=== PATIENT | male | born 1975 | race Two or more races ===

== ENCOUNTER 2022-07-05 17:18 | Inpatient (IN) | payer MEDICAID ==
[~2022-07-05] VITALS: Ht 172.7 cm; Wt 70.5 kg
[2022-07-05 19:07] LABS: BASOPHILS % (AUTO) 0.3 % (0-1); EOSINOPHILS % (AUTO) 0.1 % (0-6); HEMATOCRIT 40.8 % (42.0-52.0); HEMOGLOBIN 13.9 g/dl (14.0-17.9); LYMPHOCYTES # (AUTO) 2.3 X10'3 (1.1-4.8); LYMPHOCYTES % (AUTO) 18.5 % (21-51); MEAN CORPUSCULAR HEMOGLOBIN 29.3 PG (27.0-31.0); MEAN CORPUSCULAR HGB CONC 34.2 g/dL (33.0-36.5); MEAN CORPUSCULAR VOLUME 85.7 FL (78-98); MEAN PLATELET VOLUME 7.4 FL (7.4-10.4); MONOCYTES # (AUTO) 1.5 X10'3 (0-0.9); NEUTROPHILS # (AUTO) 8.8 X10'3 (1.8-7.7); NEUTROPHILS % (AUTO) 69.1 % (42-75); PLATELET COUNT 248 X10'3 (140-440); RED BLOOD COUNT 4.76 X10'6 (4.70-6.10); RED CELL DISTRIBUTION WIDTH 14.3 % (11.5-14.5); WHITE BLOOD COUNT 12.7 X10'3 (4.5-11.0)
[2022-07-05 19:19] LABS: ALANINE AMINOTRANSFERASE 476 U/L (12-78); ALBUMIN 3.7 G/DL (3.4-5.0); ALBUMIN/GLOBULIN RATIO 0.8 (1.1-1.5); ALKALINE PHOSPHATASE 106 IU/L (46-116); ANION GAP 12 (8-16); ASPARTATE AMINO TRANSFERASE 828 U/L (10-37); BILIRUBIN,TOTAL 0.9 MG/DL (0.1-1.0); BLOOD UREA NITROGEN 21 MG/DL (7-18); BUN/CREATININE RATIO 23.6 (5.4-32.0); CALCIUM 8.7 MG/DL (8.5-10.1); CHLORIDE 104 MMOL/L (99-107); CREATININE 0.89 MG/DL (0.60-1.10); GLUCOSE 101 MG/DL (70-104); LIPASE 66 U/L (73-393); POTASSIUM 3.4 MMOL/L (3.5-5.1); SODIUM 141 MMOL/L (135-145); TOTAL CARBON DIOXIDE 25.3 MMOL/L (24-32); TOTAL PROTEIN 8.3 G/DL (6.4-8.2); eGFR > 90 ML/MIN
--- NOTE | 2022-07-05 22:25 | NUR ---
PT STATES UNABLE TO URINATE SINCE YESTERDAY. BLADDER SCAN SHOWS 337 ML IN BLADDER.
--- NOTE | 2022-07-05 23:22 | NUR ---
PT WONDERING AROUND THE HALLWAYS AND REPEATEDLY TOLD TO STAY IN HALLWAY BED. PT MOVED TO ROOM 12 AND INSTRUCTED TO NOT LEAVE THE ROOM.
[2022-07-05 23:39] LABS: ETHANOL < 0.010 GM/DL (0.0-0.010)
[2022-07-06] MEDS ORDERED: thiamine 100mg/ml 2ml inj. IV ONE
--- NOTE | 2022-07-06 01:12 | NUR ---
PT WALKED OUT OF ER WITHOUT NOTIFYING ANYONE WITH PIV INTACT. [employer] NOTIFIED TO LOCATE PT IN ORDER TO REMOVE PIV.
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
[2022-07-06] MEDS ORDERED: diphenhydrAMINE 25mg capsule PO PRN (02:30)
[2022-07-06] MEDS ORDERED: bisacodyl 10mg suppository rectal RC PRN (02:30)
[2022-07-06] MEDS ORDERED: magnesium hydroxide 30ml (MOM) UD suspension PO PRN (02:30)
[2022-07-06] MEDS ORDERED: acetaminophen 650mg rectal suppository RC PRN (02:30)
[2022-07-06] MEDS ORDERED: magnesium Cl slow-release 64mg tablet PO PRN (02:30)
[2022-07-06] MEDS ORDERED: mag hydrox/Alum hydrox/simeth 30ml oral suspension PO PRN (02:30)
[2022-07-06] MEDS ORDERED: magnesium 4gm in 100ml NS 100 ML IV PRN (02:30)
[2022-07-06] MEDS ORDERED: diphenhydrAMINE 50 mg/ml inj IV PRN (02:30)
[2022-07-06] MEDS ORDERED: ondansetron 4mg rapidly disintigrating tab PO PRN (02:30)
[2022-07-06] MEDS ORDERED: acetaminophen 325mg tablet PO PRN ×2 (02:30)
[2022-07-06] MEDS ORDERED: potassium Cl 40MEQ/1/2NS 520ml 520 ML IV PRN (02:30)
[2022-07-06] MEDS ORDERED: ondansetron/PF 4mg/2ml inj IV PRN (02:30)
[2022-07-06] MEDS ORDERED: morphine 2 MG/ML inj. syringe IV PRN (02:30)
[2022-07-06] MEDS ORDERED: HYDROcodone/acetaminophen 5mg/325mg tablet PO PRN (02:30)
[2022-07-06] MEDS ORDERED: potassium Cl 20 mEq SR tablet PO PRN ×2 (02:30)
[2022-07-06] MEDS ORDERED: dextrose 50%-water 50ml dispensing syringe IV PRN (02:35)
[2022-07-06] MEDS ORDERED: haloperidol lactate 5mg/ml inj IM PRN (02:35)
[2022-07-06] MEDS ORDERED: LIDOcaine 2% 10ml TOPICAL JELLY (Urojet) TP ONE (02:35)
[2022-07-06] MEDS ORDERED: haloperidol 5mg tablet PO PRN (02:35)
[2022-07-06] MEDS ORDERED: ringers solution, lacted 1,000 ML IV ONE (02:35)
[2022-07-06] MEDS ORDERED: LORazepam 2 mg/ml vial IV PRN (02:35)
--- NOTE | 2022-07-06 03:49 | NUR ---
Patient in room ED 14. I have received report from Halima and had the opportunity to ask questions and assume patient care. patient will be arriving via gurney to rrom [id number]
[2022-07-06 04:05] VITALS: BP 136/92
[2022-07-06 04:14] LABS: URINE AMPHETAMINE SCREEN POSITIVE (Neg); URINE BARBITUATE SCREEN NEGATIVE (Neg); URINE BENZODIAZEPINES SCREEN NEGATIVE (Neg); URINE CANNABINOID SCREEN NEGATIVE (Neg); URINE COCAINE SCREEN NEGATIVE (Neg); URINE METHADONE SCREEN NEGATIVE (Neg); URINE OPIATE SCREEN NEGATIVE (Neg); URINE PHENCYCLIDINE SCREEN NEGATIVE (Neg)
[2022-07-06 04:22] LABS: CLARITY,URINE CLEAR (Clear); COLOR,URINE YELLOW (Yellow); GLUCOSE, URINE NEGATIVE (Neg); KETONES,URINE 15 mg/dl (Neg); LEUKOCYTE ESTERASE ,URINE NEGATIVE (Neg); NITRITES, URINE NEGATIVE (Neg); OCCULT BLOOD,URINE MODERATE (Neg); PROTEIN,URINE TRACE mg/dl (Neg); UROBILINOGEN,URINE 0.2 E.U/dL (0.2-1.0)
[2022-07-06 04:28] LABS: UA COLLECTION TYPE VOIDED
[2022-07-06 04:29] LABS: FINE GRANULAR CAST 0-3 /LPF (NEGATIVE); MUCUS STRANDS MODERATE /LPF (Neg); SQUAMOUS EPITHELIAL CELL,UR FEW /LPF (FEW)
[2022-07-06 04:30] LABS: HYALINE CASTS 0-3 /LPF (NEGATIVE)
[2022-07-06 04:32] LABS: BACTERIA,URINE FEW /HPF (Neg); CAL OXALATE CRYSTALS 1+ /HPF (NEGATIVE); WBC,URINE 0-4 /HPF (0-4)
[2022-07-06] MEDS: potassium cl 20mEq in 1/2 NS 1,000 ML IV SCH ×2 (04:59→12:30)
--- NOTE | 2022-07-06 06:28 | NUR ---
Problems reprioritized. Patient report given, questions answered & plan of care reviewed with Sally.
[2022-07-06 07:24] LABS: APTT 27 SECONDS (22-32)
[2022-07-06] MEDS ORDERED: pantoprazole 40mg Tablet.DR PO SCH (07:30)
[2022-07-06] MEDS ORDERED: docusate sod 100mg capsule PO SCH (08:00)
[2022-07-06] MEDS ORDERED: heparin, porcine 5000 units/ml vial SQ SCH (08:00)
[2022-07-06] MEDS ORDERED: K and/or MAG REPLACEMENT MC SCH (08:00)
[2022-07-06] MEDS ORDERED: folic acid 1mg/0.2ml inj IV SCH (08:00)
[2022-07-06 08:02] LABS: PHOSPHORUS 3.2 MG/DL (2.3-4.5); POTASSIUM 3.4 MMOL/L (3.5-5.1)
[2022-07-06] MEDS: thiamine 100mg/ml 2ml inj. IV SCH ×2 (09:01→13:00)
--- NOTE | 2022-07-06 09:13 | NUR ---
Malnutrition consult: Pt admitted w/ alcohol abuse/withdrawal cirrhosis per EMR. Pt does not report any specific amount of wt loss, does not appear w/ visible muscle fat wasting. On Clear liquid diet pending PO intake. No edema noted. Pt does not meet minimum criteria for malnutrition at this time. A1c 5.3. Will continue to monitor. Addendum: 07/06/22 at [address] Amended: Links added.
--- NOTE | 2022-07-06 10:02 | NUR ---
Received order for consult. Met with patient in regards to substance use and to see if patient was interested in resources for treatment options. Patient declined resources.
[2022-07-06] MEDS ORDERED: temazepam 15mg capsule PO PRN (21:00)
[2022-07-08] MEDS ORDERED: LORazepam 1 MG tablet PO PRN (02:35)
[2022-07-08] MEDS ORDERED: LORazepam 2 mg/ml vial IV PRN (02:35)
[2022-07-10] MEDS ORDERED: LORazepam 2 mg/ml vial IV PRN (02:35)
[2022-07-10] MEDS ORDERED: LORazepam 1 MG tablet PO PRN (02:35)
[2022-07-10] MEDS ORDERED: thiamine 100mg tablet PO SCH (08:00)
[2022-07-10] MEDS ORDERED: folic acid 1mg tablet PO SCH (08:00)
== END 2022-07-06 14:42 | disposition home or self-care (01) | DRG 861 ==
LOC: ER 17:20 → ED HOLD 07-06 02:31 → SUR 3N 07-06 04:00
PROVIDERS: ADMIT Family Medicine; ATTEND Internal Medicine
DX: R41.0 Disorientation, unspecified (principal); K70.30 Alcoholic cirrhosis of liver without ascites; B18.2 Chronic viral hepatitis C; E87.6 Hypokalemia; F10.139 Alcohol abuse with withdrawal, unspecified; R74.8 Abnormal levels of other serum enzymes; M54.9 Dorsalgia, unspecified; F31.9 Bipolar disorder, unspecified; F43.10 Post-traumatic stress disorder, unspecified; Z72.0 Tobacco use; Z88.6 Allergy status to analgesic agent; Z71.41 Alcohol abuse counseling and surveillance of alcoholic; Z71.6 Tobacco abuse counseling
CPT/HCPCS: 36415; 70450; 74176; 80053; 80305; 80320; 81001; 82140; 83036; 83690; 83735; 83880; 84100; 84132; 84443; 85025; 85610; 85730; 87081; 99285; G0378; J1644; J2060; J3411; J3480; J3490; J7120

== ENCOUNTER 2022-08-17 17:07 | Emergency (ER) | payer MEDICAID | END 2022-08-17 19:00 | disposition left against medical advice (07) | LOC: ER 17:08 | DX: Z00.00 Encounter for general adult medical examination without abnormal findings (principal); Z53.21 Procedure and treatment not carried out due to patient leaving prior to being seen by health care provider ==

== ENCOUNTER 2022-08-17 21:08 | Emergency (ER) | payer MEDICAID ==
[~2022-08-17] VITALS: Ht 170.2 cm; Wt 60.0 kg
[2022-08-17 21:24] VITALS: BP 156/96
== END 2022-08-17 23:34 | disposition home or self-care (01) ==
LOC: ER 21:08
DX: Z00.00 Encounter for general adult medical examination without abnormal findings (principal); F15.20 Other stimulant dependence, uncomplicated; Z56.0 Unemployment, unspecified; Z88.6 Allergy status to analgesic agent
CPT/HCPCS: 99281

== ENCOUNTER 2022-10-24 18:19 | Emergency (ER) | payer MEDICAID | END 2022-10-24 20:11 | disposition left against medical advice (07) | LOC: ER 18:20 | DX: R10.9 Unspecified abdominal pain (principal); Z53.21 Procedure and treatment not carried out due to patient leaving prior to being seen by health care provider ==

== ENCOUNTER 2023-01-13 01:14 | Emergency (ER) | payer MEDICAID ==
[~2023-01-13] VITALS: Ht 172.7 cm; Wt 75.0 kg
[2023-01-13 01:19] VITALS: BP 134/95
--- NOTE | 2023-01-13 02:33 | NUR ---
pt is asking for food. Informed him not at this time.
[2023-01-13 02:46] LABS: ALANINE AMINOTRANSFERASE 232 U/L (12-78); ALBUMIN 3.9 G/DL (3.4-5.0); ALKALINE PHOSPHATASE 140 IU/L (46-116); ANION GAP 13 (8-16); ASPARTATE AMINO TRANSFERASE 133 U/L (10-37); BILIRUBIN,TOTAL 0.6 MG/DL (0.1-1.0); BLOOD UREA NITROGEN 25 MG/DL (7-18); BUN/CREATININE RATIO 36.8 (10.0-20.0); CALCIUM 8.8 MG/DL (8.5-10.1); CHLORIDE 102 MMOL/L (99-107); CREATININE 0.68 MG/DL (0.60-1.10); GLUCOSE 111 MG/DL (70-104); POTASSIUM 3.7 MMOL/L (3.5-5.1); SODIUM 140 MMOL/L (135-145); TOTAL PROTEIN 7.9 G/DL (6.4-8.2); eGFR > 90 ML/MIN
[2023-01-13 02:48] LABS: BASOPHILS % (AUTO) 0.5 % (0-1); EOSINOPHILS # (AUTO) 0.4 X10'3 (0-0.9); EOSINOPHILS % (AUTO) 4.8 % (0-6); HEMOGLOBIN 13.5 g/dl (14.0-17.9); LYMPHOCYTES # (AUTO) 1.7 X10'3 (1.1-4.8); LYMPHOCYTES % (AUTO) 20.9 % (21-51); MEAN CORPUSCULAR HEMOGLOBIN 29.1 PG (27.0-31.0); MEAN CORPUSCULAR HGB CONC 33.7 g/dL (33.0-36.5); MEAN CORPUSCULAR VOLUME 86.3 FL (78-98); MEAN PLATELET VOLUME 6.7 FL (7.4-10.4); MONOCYTES # (AUTO) 0.8 X10'3 (0-0.9); MONOCYTES % (AUTO) 9.6 % (2-12); NEUTROPHILS # (AUTO) 5.2 X10'3 (1.8-7.7); NEUTROPHILS % (AUTO) 64.2 % (42-75); PLATELET COUNT 259 X10'3 (140-440); RED BLOOD COUNT 4.63 X10'6 (4.70-6.10); RED CELL DISTRIBUTION WIDTH 14.3 % (11.5-14.5); WHITE BLOOD COUNT 8.1 X10'3 (4.5-11.0)
[2023-01-13 02:51] LABS: LIPASE 131 U/L (73-393)
[2023-01-13 02:54] LABS: ETHANOL < 0.010 GM/DL (0.0-0.010)
[2023-01-13] MEDS ORDERED: QUET200T PO (23:17)
[2023-01-13] MEDS ORDERED: SERT25TA PO (23:17)
== END 2023-01-13 02:36 | disposition left against medical advice (07) ==
LOC: ER 01:15
DX: R10.9 Unspecified abdominal pain (principal); M54.2 Cervicalgia; R74.8 Abnormal levels of other serum enzymes; F15.10 Other stimulant abuse, uncomplicated; Z88.6 Allergy status to analgesic agent; Z56.0 Unemployment, unspecified
CPT/HCPCS: 36415; 71045; 80053; 80320; 83690; 84145; 84484; 85025; 99284

== ENCOUNTER 2023-01-13 22:40 | Emergency (ER) | payer MEDICAID ==
[~2023-01-13] VITALS: Ht 172.7 cm; Wt 79.5 kg
[2023-01-13] MEDS ORDERED: OLANZapine 5mg rapidly disint. tablet PO ONE (23:00)
--- NOTE | 2023-01-13 23:03 | NUR ---
PT HAVING TROUBLE FORMING FULL SENTENCES, SHOWING FLIGHT OF IDEAS AND TROUBLE FINDING WORDS. PT MISSING TEETH, HARD TO UNDERSTAND SPEECH. PT STATES LIVES WITH IN [place] AND [place]es SEES DOC IN [place] BUT HAS BEEN UNABLE TO GET BACK TO [place]. PT STATES HAS BEEN OFF MEDICATION FOR UNKNOWN NUMBER OF MONTHS. DR KRAMER AT BEDSIDE. PT STATES IS DISABLED AND UNABLE TO PICK HIM UP TODAY. PT REQUESTING TAXI HOME TO [place]. CHARGE NURSE BOUBACAR NOTIFIED.
[2023-01-13] MEDS ORDERED: quetiapine 100mg tablet PO SCH (23:14)
[2023-01-13] MEDS ORDERED: SERT25TA PO (23:17)
[2023-01-13] MEDS ORDERED: QUET200T PO (23:17)
[2023-01-13 23:35] VITALS: BP 120/82
== END 2023-01-13 23:38 | disposition home or self-care (01) ==
LOC: ER 22:41
DX: Z04.6 Encounter for general psychiatric examination, requested by authority (principal); F15.20 Other stimulant dependence, uncomplicated; Z88.6 Allergy status to analgesic agent; Z56.0 Unemployment, unspecified
CPT/HCPCS: 99284

== ENCOUNTER 2023-01-24 22:01 | Emergency (ER) | payer MEDICAID ==
[~2023-01-24] VITALS: Ht 172.7 cm; Wt 68.2 kg
[~2023-01-24 22:01] MED LIST: QUET200T PO; SERT25TA PO
[2023-01-24] MEDS ORDERED: quetiapine 100mg tablet PO STA (22:52)
[2023-01-24] MEDS ORDERED: OLANZapine 5mg rapidly disint. tablet PO ONE (22:55)
[2023-01-24] MEDS ORDERED: hydrOXYzine 25 MG tablet PO ONE (22:55)
[2023-01-24 23:16] LABS: BASOPHILS # (AUTO) 0.1 X10'3 (0-0.2); BASOPHILS % (AUTO) 0.8 % (0-1); EOSINOPHILS # (AUTO) 0.1 X10'3 (0-0.9); EOSINOPHILS % (AUTO) 0.8 % (0-6); HEMATOCRIT 39.2 % (42.0-52.0); HEMOGLOBIN 13.3 g/dl (14.0-17.9); LYMPHOCYTES # (AUTO) 2.6 X10'3 (1.1-4.8); LYMPHOCYTES % (AUTO) 23.7 % (21-51); MEAN CORPUSCULAR HGB CONC 33.9 g/dL (33.0-36.5); MEAN CORPUSCULAR VOLUME 85.6 FL (78-98); MEAN PLATELET VOLUME 6.8 FL (7.4-10.4); MONOCYTES % (AUTO) 8.9 % (2-12); NEUTROPHILS # (AUTO) 7.2 X10'3 (1.8-7.7); NEUTROPHILS % (AUTO) 65.8 % (42-75); PLATELET COUNT 267 X10'3 (140-440); RED BLOOD COUNT 4.58 X10'6 (4.70-6.10); RED CELL DISTRIBUTION WIDTH 14.3 % (11.5-14.5); WHITE BLOOD COUNT 10.9 X10'3 (4.5-11.0)
[2023-01-24 23:28] LABS: ALANINE AMINOTRANSFERASE 161 U/L (12-78); ALKALINE PHOSPHATASE 107 IU/L (46-116); ANION GAP 10 (8-16); ASPARTATE AMINO TRANSFERASE 120 U/L (10-37); BILIRUBIN,TOTAL 0.8 MG/DL (0.1-1.0); BLOOD UREA NITROGEN 24 MG/DL (7-18); BUN/CREATININE RATIO 28.6 (10.0-20.0); CALCIUM 9.3 MG/DL (8.5-10.1); CHLORIDE 104 MMOL/L (99-107); CREATININE 0.84 MG/DL (0.60-1.10); GLUCOSE 118 MG/DL (70-104); POTASSIUM 3.8 MMOL/L (3.5-5.1); SODIUM 137 MMOL/L (135-145); TOTAL CARBON DIOXIDE 22.9 MMOL/L (24-32); TOTAL PROTEIN 8.1 G/DL (6.4-8.2); eGFR > 90 ML/MIN
--- NOTE | 2023-01-24 23:31 | NUR ---
INCREASE IN IZAIAH II R/T 1799 PLACED
[2023-01-24 23:38] LABS: ETHANOL < 0.010 GM/DL (0.0-0.010)
--- NOTE | 2023-01-24 23:49 | NUR ---
PT WAS CHANGED OUT. HE WAS ABLE TO LEAVE A MESSAGE FOR HIS FAMILY VIA TELEPHONE. WALKED HIM TO OVERFLOW. HE WAS RELUCTANT. STATES HE IS HAVING TRUST ISSUES. HE WAS INTRODUCED TO STAFF.
--- NOTE | 2023-01-24 23:52 | NUR ---
The patient moved to bed 26 from the main ER. He is very fearful and paranoid.
[2023-01-25 00:25] LABS: CLARITY,URINE SLIGHTLY CLOUDY (Clear); COLOR,URINE YELLOW (Yellow); GLUCOSE, URINE NEGATIVE (Neg); KETONES,URINE NEGATIVE (Neg); LEUKOCYTE ESTERASE ,URINE NEGATIVE (Neg); NITRITES, URINE NEGATIVE (Neg); OCCULT BLOOD,URINE NEGATIVE (Neg); PH,URINE 5.5 (4.8-8.0); PROTEIN,URINE TRACE mg/dl (Neg); UROBILINOGEN,URINE 0.2 E.U/dL (0.2-1.0)
[2023-01-25 00:29] LABS: UA COLLECTION TYPE CLN CATCH MIDSTREAM
[2023-01-25 00:33] LABS: URINE AMPHETAMINE SCREEN POSITIVE (Neg); URINE BARBITUATE SCREEN NEGATIVE (Neg); URINE BENZODIAZEPINES SCREEN NEGATIVE (Neg); URINE CANNABINOID SCREEN NEGATIVE (Neg); URINE COCAINE SCREEN NEGATIVE (Neg); URINE METHADONE SCREEN NEGATIVE (Neg); URINE OPIATE SCREEN NEGATIVE (Neg); URINE PHENCYCLIDINE SCREEN NEGATIVE (Neg)
[2023-01-25 00:34] LABS: WBC,URINE 0-4 /HPF (0-4)
[2023-01-25 00:35] LABS: BACTERIA,URINE 2+ /HPF (Neg); CAL OXALATE CRYSTALS 1+ /HPF (NEGATIVE); FINE GRANULAR CAST 0-3 /LPF (NEGATIVE); SQUAMOUS EPITHELIAL CELL,UR FEW /LPF (FEW)
--- NOTE | 2023-01-25 00:42 | NUR ---
[facility] packet faxed
--- NOTE | 2023-01-25 01:08 | NUR ---
The patient is laying on his bed awake
--- NOTE | 2023-01-25 02:15 | NUR ---
The patient continues to be very fearful and paranoid. Dr. Arteaga consulted and orders received.
[2023-01-25] MEDS ORDERED: haloperidol 5mg tablet PO STA (02:17)
[2023-01-25] MEDS ORDERED: diphenhydrAMINE 25mg capsule PO STA (02:17)
[2023-01-25 02:23] VITALS: BP 109/62
--- NOTE | 2023-01-25 02:55 | NUR ---
The patient up to use the bathroom
--- NOTE | 2023-01-25 05:07 | NUR ---
The patient appears to be sleeping
--- NOTE | 2023-01-25 08:30 | NUR ---
Patient was recieved at 0630. Patient was found sleeping but was observed tossing and turning. Patient got up for breakfast . Patient came up to nurses station confused as to why he is here. Patient asked how long he will be here. Patients appeared disheveled and fatigued.
--- NOTE | 2023-01-25 09:10 | NUR ---
Patient up to nurse's station stating he is not suicidal/homicidal and he wants to leave. RN explains that he will be evaluated soon and it's up to [facility] to decide if his hold is valid or not. Continue to monitor.
--- NOTE | 2023-01-25 10:05 | NUR ---
Discovered patient had walked out the [facility] hallway and was seen walking west past [employer] on [address] at 0950. RN called Umm to report.
== END 2023-01-25 12:52 | disposition left against medical advice (07) ==
LOC: ER 22:02
DX: F20.9 Schizophrenia, unspecified (principal); Z20.822 Contact with and (suspected) exposure to COVID-19; F15.10 Other stimulant abuse, uncomplicated; Z59.00 Homelessness unspecified; Z88.6 Allergy status to analgesic agent; Z79.899 Other long term (current) drug therapy
CPT/HCPCS: 36415; 80053; 80305; 80320; 81001; 84443; 85025; 87811; 99285; Q0163; Q0177

== ENCOUNTER 2023-02-04 00:23 | Emergency (ER) | payer MEDICAID ==
[~2023-02-04] VITALS: Ht 172.7 cm; Wt 68.1 kg
[2023-02-04 00:36] VITALS: BP 143/86
== END 2023-02-05 06:55 | disposition home or self-care (01) ==
LOC: ER 00:25
DX: F20.9 Schizophrenia, unspecified (principal); F15.90 Other stimulant use, unspecified, uncomplicated; Z88.6 Allergy status to analgesic agent
CPT/HCPCS: 99281

== ENCOUNTER 2023-02-15 13:08 | Emergency (ER) | payer MEDICAID ==
[~2023-02-15] VITALS: Ht 172.7 cm; Wt 68.2 kg
[2023-02-15 13:55] VITALS: BP 114/76; PULSE 88; RESP 16; TEMP 98; O2SAT 97
== END 2023-02-15 15:03 | disposition home or self-care (01) ==
LOC: ER 13:09
DX: F15.10 Other stimulant abuse, uncomplicated (principal); Z00.8 Encounter for other general examination; F20.9 Schizophrenia, unspecified; Z56.0 Unemployment, unspecified; Z88.6 Allergy status to analgesic agent
CPT/HCPCS: 99281

== ENCOUNTER 2023-03-15 14:00 | Inpatient (IN) | payer MEDICAID ==
[~2023-03-15] VITALS: Ht 172.7 cm; Wt 70.2 kg
[2023-03-15] MEDS ORDERED: magnesium hydroxide 30ml (MOM) UD suspension PO PRN (20:30)
[2023-03-15] MEDS ORDERED: acetaminophen 325mg tablet PO PRN ×2 (20:30)
[2023-03-15] MEDS ORDERED: loperamide 2mg capsule PO PRN (20:30)
[2023-03-15] MEDS ORDERED: mag hydrox/Alum hydrox/simeth 30ml oral suspension PO PRN (20:30)
[2023-03-15] MEDS ORDERED: olanzapine 10mg tablet PO ONE (20:50)
[2023-03-15 21:05] VITALS: BP 117/81; PULSE 97; RESP 16; TEMP 98.1; O2SAT 98
[2023-03-15 21:09] VITALS: RESP 16; O2SAT 98
--- NOTE | 2023-03-15 23:20 | NUR ---
Admit Note: Pt is direct admit from [place], GD 5150 for AH/VH - he is seeing people kill his and people are following him. He is afraid that everyone is trying to kill him and he is not sure what is real or not. He does not know when he ate last, or how to access food and housing. Pt Hx: schizophrenia, PTSD, Hep C, polysubstance abuse, alcohol cirrhosis. Pt is cooperative with admit process, he came from [place] to visit his here in [place] but he hasn't taken his medications. He wants to go to [facility] to get help but he keeps pushing his family away. Pt is paranoid. Currently has AH/VH and states it hasn't been this bad in years.
[2023-03-16 07:00] VITALS: RESP 16; O2SAT 96
[2023-03-16 08:00] VITALS: BP 118/82; PULSE 70; RESP 16; O2SAT 96
[2023-03-16] MEDS ORDERED: sertraline 50mg tablet PO ONE (08:00)
[2023-03-16] MEDS ORDERED: QUETIAPINE 150 MG TAB.SR.24H PO SCH (08:00)
[2023-03-16 10:20] LABS: CHOL/HDL RATIO 2.3 (0.00-4.99); CHOLESTEROL 131 MG/DL (0-200); HDL CHOLESTEROL 58 MG/DL (35-60); LDL CHOLESTEROL 63 MG/DL (50-100); TRIGLYCERIDES 42 MG/DL (20-135)
[2023-03-16 10:39] LABS: HEMOGLOBIN A1C 5.2 % (4.5-6.2)
[2023-03-16] MEDS ORDERED: QUET150T2 PO (10:57)
[2023-03-16] MEDS ORDERED: SERT-153 PO (11:27)
--- NOTE | 2023-03-16 17:19 | NUR ---
Nursing Progress Note: Problem: Grave Disability; V/H of people killing his and states people are following him. He does not know when he ate last, or how to access food and housing. Pt Hx: schizophrenia, PTSD, Hep C, polysubstance abuse, alcohol cirrhosis. Interventions: Provided 1:1 assessment, therapeutic conversation, active listening, medication administration/education/monitoring, behavior monitoring and intervention as needed; attempted reality orientation, provided distraction, redirection, positive reinforcement, and Q15 min safety checks. Response: Patient asleep at change of shift. Met with RN for 1:1 assessment at the bedside before breakfast. Presents sedated, difficulty keeping eyes open when asked questions. Patient only oriented to self. Attempted to orient patient, but he does not verbalize understanding. Instead he starts to fall back asleep. He gives very brief responses. No paranoid or delusional statements made, and shakes his head no when asked about hallucinations. Patient spent the shift asleep in bed, except to get up for meals and snacks. Plan: Placed on 5250 today d/t not knowing reality from not reality and being unable to discuss caring for himself.
[2023-03-16] MEDS: quetiapine 100mg tablet PO SCH ×2 (18:44→20:30)
[2023-03-16 20:00] VITALS: BP 109/72; PULSE 89; RESP 15; TEMP 97.9; O2SAT 97
--- NOTE | 2023-03-16 22:44 | NUR ---
Nursing Progress Note: Bacilio Problem: Grave Disability; V/H of people killing his and states people are following him. He does not know when he ate last, or how to access food and housing. Pt Hx: schizophrenia, PTSD, Hep C, polysubstance abuse, alcohol cirrhosis. Interventions: Provided 1:1 assessment, therapeutic conversation, active listening, medication administration/education/monitoring, behavior monitoring and intervention as needed; attempted reality orientation, provided distraction, redirection, positive reinforcement, and Q15 min safety checks. Response: Patient resting at change of shift. Pt states his VH/VH are much better today. He states he is tired, took his scheduled Seroquel and ate a snack. Pt doesnt remember what happened or why he is here. He is only oriented to self. Pt is grateful for being here and the care we provide. Pt is currently sleeping, will continue to monitor. Plan: Placed on 5250 today d/t not knowing reality from not reality and being unable to discuss caring for himself.
[2023-03-17 07:00] VITALS: RESP 12; O2SAT 98
[2023-03-17 08:00] VITALS: BP 113/75; PULSE 65; RESP 12; TEMP 97.2; O2SAT 98
[2023-03-17] MEDS: quetiapine 100mg tablet PO SCH ×4 (08:37→20:07)
[2023-03-17] MEDS: sertraline 50mg tablet PO SCH (08:37)
--- NOTE | 2023-03-17 17:02 | NUR ---
Nursing Progress Note: Bacilio Problem: Grave Disability; V/H of people killing his and states people are following him. He does not know when he ate last, or how to access food and housing. Pt Hx: schizophrenia, PTSD, Hep C, polysubstance abuse, alcohol cirrhosis. Interventions: Provided 1:1 assessment, therapeutic conversation, active listening, medication administration/education/monitoring, behavior monitoring and intervention as needed; attempted reality orientation, provided distraction, redirection, positive reinforcement, and Q15 min safety checks. Response: Received Pt in bed sleeping w/o distress at the beginning of this shift. Pt woke for vitals and was cooperative and returned to sleep. Pt was difficult to awake for AM meds and took them w/o issue. Pt slept through breakfast and his tray was set aside and he ate at apprx. Nine AM. Pt confused in AM asking for snacks and believing he already ate breakfast, when he did not. Pt overall cooperative and follows direction well. He got up for snack and returned to bed in both AM and PM. Pt responds to some questions with answers that are intelligible. He does not appear to understand the circumstances that caused him to be here or what purpose of being on [facility]. Plan: Placed on 5250 due to lack of orientation and inability to plan care for himself. Pt needs med adjustments; safe milieu and interruption of current MH crisis.
[2023-03-17 19:58] VITALS: BP 137/73; PULSE 65; RESP 16; TEMP 98.7; O2SAT 99
--- NOTE | 2023-03-18 00:11 | NUR ---
Nursing Progress Note: Bacilio Problem: Grave Disability; V/H of people killing his and states people are following him. He does not know when he ate last, or how to access food and housing. Pt Hx: schizophrenia, PTSD, Hep C, polysubstance abuse, alcohol cirrhosis. Interventions: Provided 1:1 assessment, therapeutic conversation, active listening, medication administration/education/monitoring, behavior monitoring and intervention as needed; attempted reality orientation, provided distraction, redirection, positive reinforcement, and Q15 min safety checks. Response: Received Pt awake and pacing the unit. 1:1 assessment done, pt states his AH/VH are much better and he really needed to be back on his medications. Pt states he wants to go to [facility] and needs help getting there. Pt talked on the phone with his for a while. Pt participated in snacks and took his HS medication. Pt repeatedly thanked this RN for the help he has received since being here. Plan: Placed on 5250 due to lack of orientation and inability to plan care for himself. Pt needs med adjustments; safe milieu and interruption of current MH crisis.
--- NOTE | 2023-03-18 06:05 | NUR ---
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
[2023-03-18 07:00] VITALS: RESP 18; O2SAT 99
[2023-03-18] MEDS: sertraline 50mg tablet PO SCH (07:53)
[2023-03-18] MEDS: QUEtiapine 25mg tablet PO SCH ×3 (07:54→17:43)
[2023-03-18 08:00] VITALS: BP 136/86; PULSE 66; RESP 18; TEMP 98.4; O2SAT 99
--- NOTE | 2023-03-18 16:48 | NUR ---
Nursing Progress Note: Bacilio Problem: Grave Disability; V/H of people killing his and states people are following him. He does not know when he ate last, or how to access food and housing. Pt Hx: schizophrenia, PTSD, Hep C, polysubstance abuse, alcohol cirrhosis. Interventions: Provided 1:1 assessment, therapeutic conversation, active listening, medication administration/education/monitoring, behavior monitoring and intervention as needed; attempted reality orientation, provided distraction, redirection, positive reinforcement, and Q15 min safety checks. Response: Received Pt asleep in bed. Pt took all medications cooperatively and ate all meals in the community room. 1:1 assessment done bedside. Pt denies SI/HI, and AVH. Pt states that he needs to go home to take care of his as she had a fall and has an infected cut. Pt appearance is disheveled. Observed pt. arguing with the tech for extra snacks at snack time. Pt staff splitting attempting to acquire more snacks. Pt napped intermittently throughout the day. Plan: Placed on 5250 due to lack of orientation and inability to plan care for himself. Pt needs med adjustments; safe milieu and interruption of current MH crisis.
[2023-03-18 19:00] VITALS: RESP 16
[2023-03-18] MEDS: quetiapine 100mg tablet PO SCH (20:07)
--- NOTE | 2023-03-19 04:11 | NUR ---
RN PROGRESS NOTE: PROBLEM: Client was admitted for delusions and grave disability. Client believes people are trying to kill his . Hx: schizophrenia, substance use INTERVENTIONS: Provided 1:1 assessment, therapeutic conversation, active listening, medication administration/education/monitoring, behavior monitoring and intervention as needed; attempted reality orientation, provided distraction, redirection, positive reinforcement, and Q15 min safety checks. RESPONSE: Client took a shower and then had snack. He stated he "felt better" after the shower. He is social and talkative. [place] and how he came to [place]. Client repeatedly mentioned taking care of his . He is preoccupied about getting housing and services when discharged. Client reported when he runs out of his medications he starts taking street drugs. Cooperative with medications. Blunted affect. Anxiety regarding discharge. PLAN: Placed on 5250 due to lack of orientation and inability to plan care for himself. Pt needs med adjustments; safe milieu and interruption of current MH crisis.
[2023-03-19 07:00] VITALS: RESP 12; O2SAT 97
[2023-03-19] MEDS: sertraline 50mg tablet PO SCH (07:14)
[2023-03-19] MEDS: QUEtiapine 25mg tablet PO SCH ×4 (07:15→20:12)
[2023-03-19 08:00] VITALS: BP 116/81; PULSE 77; RESP 12; TEMP 98.4; O2SAT 97
--- NOTE | 2023-03-19 17:47 | NUR ---
Nursing Progress Note: Bacilio Problem: Grave Disability; V/H of people killing his and states people are following him. He does not know when he ate last, or how to access food and housing. Pt Hx: schizophrenia, PTSD, Hep C, polysubstance abuse, alcohol cirrhosis. Interventions: Provided 1:1 assessment, therapeutic conversation, active listening, medication administration/education/monitoring, behavior monitoring and intervention as needed; attempted reality orientation, provided distraction, redirection, positive reinforcement, and Q15 min safety checks. Response: Received pt awake in room. Pt took all medications cooperatively and ate all meals in the community room. 1:1 assessment done bedside. Pt denies SI/HI, and AVH. Pt complained of lower calf pain, vascular study of pts right calf ordered with no issues found. Pt states he is very grateful today. Pt states I usually dont talk and look at me up today. I was taught to be quite, it can be depressing. Pt states I feel really nice, like how Im supposed to feel. Pt threw snack items at tech today because he wanted more than was offered. Pt perseverating over wanting more food than is offered. Double protein already ordered and snacks provided three times a day in addition to three meals a day. Pt attended court today. Pt appearance is disheveled. Plan: Placed on 5250 due to lack of orientation and inability to plan care for himself. Pt needs med adjustments; safe milieu and interruption of current MH crisis.
[2023-03-19 19:25] VITALS: RESP 16; O2SAT 99
[2023-03-19 19:28] VITALS: BP 125/75; PULSE 84; RESP 16; TEMP 98.6; O2SAT 99
[2023-03-19] MEDS: quetiapine 100mg tablet PO SCH (20:12)
--- NOTE | 2023-03-19 20:34 | NUR ---
Nursing Progress Note: Bacilio Problem: Grave Disability; V/H of people killing his and states people are following him. He does not know when he ate last, or how to access food and housing. Pt Hx: schizophrenia, PTSD, Hep C, polysubstance abuse, alcohol cirrhosis. Interventions: One to one with the patient to assess for severity of thought disorder and his ability to have a realistic plan for food, senior care or clothing if he left the hospital. He is on q 15 minute safety checks. Provided education to medication and assessed for side effects. Response: The patient has been up on the unit and has been friendly and social with both peers and staff. He appeared well groomed. He denied A/V hallucinations and paranoia. He denied cravings for ETOH or illicit drugs. He is wanting to go to a residential treatment program after discharge. He stated that his energy level was good. When asked about his mood he stated, "I'm happy that my meds are in the right place" \\ Plan: Continue hospitalizations for further discharge planning and stabilization.
[2023-03-19] MEDS: LORazepam 0.5 MG tablet PO PRN (22:24)
[2023-03-20 07:00] VITALS: RESP 12; O2SAT 98
[2023-03-20] MEDS: sertraline 25mg tablet PO SCH (07:25)
[2023-03-20] MEDS: QUEtiapine 25mg tablet PO SCH ×4 (07:26→20:58)
[2023-03-20 08:00] VITALS: BP 119/78; PULSE 75; RESP 12; TEMP 97.7; O2SAT 98
--- NOTE | 2023-03-20 17:49 | NUR ---
Nursing Progress Note: Bacilio Problem: Grave Disability; V/H of people killing his and states people are following him. He does not know when he ate last, or how to access food and housing. Pt Hx: schizophrenia, PTSD, Hep C, polysubstance abuse, alcohol cirrhosis. Interventions: Provided 1:1 assessment, therapeutic conversation, active listening, medication administration/education/monitoring, behavior monitoring and intervention as needed; attempted reality orientation, provided distraction, redirection, positive reinforcement, and Q15 min safety checks. Response: Received pt awake in room. Pt took all medications cooperatively and ate all meals in the community room. 1:1 assessment done bedside. Pt denies SI/HI, and AVH. Pt reports right leg numbness. Pt has a steady gate. Pt observed smiling and interacting with peers. Pt told tech that he needs to get out of here to take care of a woman. Pt kind and appropriate with staff. Pt napped intermittently throughout the day. Pt appearance is well groomed, pt showered today and clipped his nails. Pt observed watching tv with peers in community room. Plan: Placed on 5250 due to lack of orientation and inability to plan care for himself. Pt needs med adjustments; safe milieu and interruption of current MH crisis.
--- NOTE | 2023-03-20 18:06 | NUR ---
Initial: Pt admit DX anxiety, depression, and hx heavy etoh w/ meth abuse per EMR. PO mostly 100% EC7 diet w/ double protein TID per diet order meeting estimated needs. JOAN d/w RN recommends routine thiamine, folic acid, and MVI given etoh hx if MD agreeable. LBM 03/19. No further nutrition interventions. Will continue to follow. Rec: 1. continue EC7 diet w/ double proteins per diet order 2. routine thiamine, folic acid, and MVI given heavy etoh hx 3. bowel care per rx 4. weekly wt Addendum: 03/20/23 at [address] Amended: Links added.
[2023-03-20 19:00] VITALS: RESP 18; O2SAT 98
[2023-03-20 20:00] VITALS: BP 120/74; PULSE 91; RESP 18; TEMP 97.7; O2SAT 98
[2023-03-20] MEDS: quetiapine 100mg tablet PO SCH (20:58)
[2023-03-20] MEDS: LORazepam 0.5 MG tablet PO PRN (21:03)
[2023-03-20] MEDS ORDERED: quetiapine 100mg tablet PO ONE (22:05)
--- NOTE | 2023-03-21 00:25 | NUR ---
Nursing Progress Note: Problem: Grave Disability; V/H of people killing his and states people are following him. He does not know when he ate last, or how to access food and housing. Pt Hx: schizophrenia, PTSD, Hep C, polysubstance abuse, alcohol cirrhosis. Interventions: Provided 1:1 assessment, therapeutic conversation, active listening, medication administration/education/monitoring, behavior monitoring and intervention as needed; attempted reality orientation, provided distraction, redirection, positive reinforcement, and Q15 min safety checks. Response: Pt up on unit very active and talkative. Pt states "I am much better when I'm taking my medications." He denies SI or HI he denies A/V/H. Per pt when he is off his medications he has hallucinations and he is very suspicious of people. Per pt he plans to stay on his medications after discharge and have followup with a mental health provider. After extended conversation with him it seems he may have some difficulty discerning which incidents he remembers are real and which are hallucinations. Overheard telling someone on the phone he is not going to take drugs anymore. He is pleasant and cooperative with care interacts pleasantly with other pts. He reported trouble sleeping and x1 dose of an additional 100mg Seroquel ordered and given. It was effective and pt is sleeping at this time. Plan: Placed on 5250 due to lack of orientation and inability to plan care for himself. Pt needs med adjustments; safe milieu and interruption of current MH crisis.
[2023-03-21 07:30] VITALS: BP 115/79; PULSE 71; RESP 16; TEMP 97.7; O2SAT 98
[2023-03-21] MEDS: QUEtiapine 25mg tablet PO SCH ×4 (08:15→20:05)
[2023-03-21] MEDS: sertraline 25mg tablet PO SCH (08:15)
--- NOTE | 2023-03-21 16:54 | NUR ---
Nursing Progress Note: Problem: Grave Disability; V/H of people killing his and states people are following him. He does not know when he ate last, or how to access food and housing. Pt Hx: schizophrenia, PTSD, Hep C, polysubstance abuse, alcohol cirrhosis. Interventions: Provided 1:1 assessment, therapeutic conversation, active listening, medication administration/education/monitoring, behavior monitoring and intervention as needed; attempted reality orientation, provided distraction, redirection, positive reinforcement, and Q15 min safety checks. Response: RN received pt. asleep in bed at start of shift. Pt. awoke for breakfast and took all medications. Pt. is social with peers and staff, observed watching TV in community room. 1:1 done in community room. Pt. denies all psych symptoms. Pt. reports feeling good. Pt. asks if he is going to be discharged today. Pt. went to group. Plan: Placed on 5250 due to lack of orientation and inability to plan care for himself. Pt needs med adjustments; safe milieu and interruption of current MH crisis.
[2023-03-21 19:23] VITALS: BP 120/76; PULSE 88; RESP 16; TEMP 98.2; O2SAT 97
[2023-03-21 19:24] VITALS: RESP 16; O2SAT 97
[2023-03-21] MEDS: quetiapine 100mg tablet PO SCH (20:05)
[2023-03-21] MEDS: LORazepam 0.5 MG tablet PO PRN (20:05)
--- NOTE | 2023-03-22 02:14 | NUR ---
Nursing Progress Note: Problem: Grave Disability; V/H of people killing his and states people are following him. He does not know when he ate last, or how to access food and housing. Pt Hx: schizophrenia, PTSD, Hep C, polysubstance abuse, alcohol cirrhosis. Interventions: One to one with the patient to discuss his plans for discharge and his future. He is on q 15 minute safety checks. Physical assessment completed. Assessed for medication side effects. Response: The patient was up on the unit and social with staff and peers. He was wanting to discharge tonight instead of discharging tomorrow. He stated that he felt his needed him although they are . He also stated that he was planning to move back to [place] but has no firm plans to enter [facility] treatment at this time. He denies depression, anxiety and added, "I feel like I can talk better" He denied medication side effects. Plan: The patient is anticipating discharge in the AM.
[2023-03-22] MEDS: QUEtiapine 25mg tablet PO SCH ×2 (07:24→13:07)
[2023-03-22] MEDS: sertraline 25mg tablet PO SCH (07:24)
[2023-03-22 07:30] VITALS: BP 124/80; PULSE 78; RESP 16; TEMP 97.7; O2SAT 98
--- NOTE | 2023-03-22 12:53 | NUR ---
DISCHARGE PLAN Bacilio is discharging today to his ex-'s home in [place]. They are planning on traveling to [place] for a period of time. He is aware he can walk-in at [facility] in [place], Access walk-in at [facility], and [facility]. 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 SEGUN Thomas
[2023-03-22] MEDS ORDERED: QUET100T34 PO ×2 (14:14)
[2023-03-22] MEDS ORDERED: SERT-433 PO ×2 (14:14)
[2023-03-22] MEDS ORDERED: SERT-432 PO ×2 (14:16)
[2023-03-22] MEDS ORDERED: QUET50TA24 PO ×2 (14:16)
--- NOTE | 2023-03-22 14:50 | NUR ---
DISCHARGE: Pt. discharged to home with via car. Pt. discharged with all belongings and valuables. Pt. verbalized understanding of discharge plan and medications. Pt. denies SI/HI, A/V hallucinations. Pt. is A&Ox4 and in no apparent distress.
== END 2023-03-22 14:50 | disposition home or self-care (01) | DRG 750 ==
LOC: ADULT MH 14:00
PROVIDERS: ADMIT Psychiatry & Neurology Psychiatry; ATTEND Psychiatry & Neurology Psychiatry
DX: F25.1 Schizoaffective disorder, depressive type (principal); K70.30 Alcoholic cirrhosis of liver without ascites; Z91.148 Patient's other noncompliance with medication regimen for other reason; F10.20 Alcohol dependence, uncomplicated; F15.10 Other stimulant abuse, uncomplicated; F17.210 Nicotine dependence, cigarettes, uncomplicated; F19.90 Other psychoactive substance use, unspecified, uncomplicated; F43.10 Post-traumatic stress disorder, unspecified; Z56.0 Unemployment, unspecified; Z79.899 Other long term (current) drug therapy; Z86.73 Personal history of transient ischemic attack (TIA), and cerebral infarction without residual deficits; Z88.6 Allergy status to analgesic agent; Z99.2 Dependence on renal dialysis
CPT/HCPCS: 36415; 80061; 83036; 87081; 93971

== ENCOUNTER 2023-03-25 02:35 | Emergency (ER) | payer MEDICAID ==
[~2023-03-25] VITALS: Ht 172.7 cm; Wt 56.8 kg
[~2023-03-25 02:35] MED LIST changes: +QUET100T34 PO; -QUET200T PO; +QUET50TA24 PO; +SERT-432 PO; +SERT-433 PO; -SERT25TA PO
[2023-03-25 02:41] VITALS: BP 154/96; PULSE 115; RESP 18; TEMP 98; O2SAT 95
[2023-03-25] MEDS ORDERED: quetiapine 100mg tablet PO STA (03:09)
[2023-03-25] MEDS ORDERED: sertraline 50mg tablet PO ONE (03:10)
== END 2023-03-25 03:37 | disposition home or self-care (01) ==
LOC: ER 02:35
DX: Z00.00 Encounter for general adult medical examination without abnormal findings (principal); Z76.0 Encounter for issue of repeat prescription; F15.90 Other stimulant use, unspecified, uncomplicated; Z88.6 Allergy status to analgesic agent; Z79.899 Other long term (current) drug therapy
CPT/HCPCS: 99283

== ENCOUNTER 2023-03-25 14:52 | Emergency (ER) | payer MEDICAID | END 2023-03-25 15:55 | disposition left against medical advice (07) | LOC: ER 14:53 | DX: Z04.6 Encounter for general psychiatric examination, requested by authority (principal); Z53.21 Procedure and treatment not carried out due to patient leaving prior to being seen by health care provider ==

== ENCOUNTER 2023-03-25 18:31 | Emergency (ER) | payer MEDICAID ==
[~2023-03-25] VITALS: Ht 172.7 cm; Wt 73.8 kg
[2023-03-25 18:41] VITALS: BP 152/87; PULSE 103; RESP 18; TEMP 98.6; O2SAT 100
== END 2023-03-25 21:49 | disposition home or self-care (01) ==
LOC: ER 18:32
DX: F22 Delusional disorders (principal); F20.9 Schizophrenia, unspecified; F15.10 Other stimulant abuse, uncomplicated; Z88.6 Allergy status to analgesic agent; Z79.899 Other long term (current) drug therapy; Z59.00 Homelessness unspecified
CPT/HCPCS: 99281

== ENCOUNTER 2023-03-30 19:09 | Emergency (ER) | payer MEDICAID ==
[~2023-03-30] VITALS: Ht 172.7 cm; Wt 71.2 kg
[2023-03-30] MEDS ORDERED: quetiapine 100mg tablet PO STA (19:47)
[2023-03-30] MEDS ORDERED: OLANZapine 5mg rapidly disint. tablet PO ONE (19:50)
[2023-03-30] MEDS ORDERED: hydrOXYzine 25 MG tablet PO ONE (19:50)
[2023-03-30 20:17] LABS: BASOPHILS % (AUTO) 0.3 % (0-1); EOSINOPHILS # (AUTO) 0.2 X10'3 (0-0.9); EOSINOPHILS % (AUTO) 2.9 % (0-6); HEMATOCRIT 39.2 % (42.0-52.0); HEMOGLOBIN 13.4 g/dl (14.0-17.9); LYMPHOCYTES # (AUTO) 2.1 X10'3 (1.1-4.8); LYMPHOCYTES % (AUTO) 34.6 % (21-51); MEAN CORPUSCULAR HEMOGLOBIN 29.8 PG (27.0-31.0); MEAN CORPUSCULAR HGB CONC 34.2 g/dL (33.0-36.5); MEAN CORPUSCULAR VOLUME 87.2 FL (78-98); MEAN PLATELET VOLUME 7.1 FL (7.4-10.4); MONOCYTES # (AUTO) 0.6 X10'3 (0-0.9); MONOCYTES % (AUTO) 9.2 % (2-12); NEUTROPHILS # (AUTO) 3.2 X10'3 (1.8-7.7); PLATELET COUNT 215 X10'3 (140-440); RED CELL DISTRIBUTION WIDTH 14.5 % (11.5-14.5)
[2023-03-30 20:29] LABS: ALANINE AMINOTRANSFERASE 210 U/L (12-78); ALBUMIN 3.6 G/DL (3.4-5.0); ALBUMIN/GLOBULIN RATIO 0.8 (1.1-1.5); ALKALINE PHOSPHATASE 153 IU/L (46-116); ANION GAP 6 (8-16); ASPARTATE AMINO TRANSFERASE 100 U/L (10-37); BILIRUBIN,TOTAL 0.3 MG/DL (0.1-1.0); BLOOD UREA NITROGEN 24 MG/DL (7-18); BUN/CREATININE RATIO 36.9 (10.0-20.0); CALCIUM 9.4 MG/DL (8.5-10.1); CHLORIDE 104 MMOL/L (99-107); CREATININE 0.65 MG/DL (0.60-1.10); ETHANOL < 10 MG/DL (<10); GLUCOSE 113 MG/DL (70-104); SODIUM 138 MMOL/L (135-145); TOTAL CARBON DIOXIDE 28.3 MMOL/L (24-32); TOTAL PROTEIN 7.9 G/DL (6.4-8.2); eCRCL 134 ML/MIN; eGFR > 90 ML/MIN
--- NOTE | 2023-03-30 21:19 | NUR ---
The patient moved to bed 26 from bed 18 in the main ER. He has been so far uncooperative with giving a urine specimen. He has a significant history of ETOH and mathamphetamine abuse. He is here claiming to feeling paranoid and hearing voices.
--- NOTE | 2023-03-30 21:32 | NUR ---
The patient is somewhat uncooperative. He did not want to give up his phone but did eventually give it up with security on the unit.
[2023-03-30] MEDS ORDERED: SERT25TA PO (21:44)
[2023-03-30] MEDS ORDERED: SERT-153 PO (21:44)
[2023-03-30] MEDS ORDERED: QUET50TA PO (21:44)
[2023-03-30] MEDS ORDERED: QUET-1 PO (21:44)
--- NOTE | 2023-03-30 21:58 | NUR ---
The patient's prescriptions filled 03/22 but not one pill is missing from any of the prescriptions.
[2023-03-30 22:12] LABS: URINE AMPHETAMINE SCREEN POSITIVE (Neg); URINE BARBITUATE SCREEN NEGATIVE (Neg); URINE BENZODIAZEPINES SCREEN NEGATIVE (Neg); URINE CANNABINOID SCREEN POSITIVE (Neg); URINE COCAINE SCREEN NEGATIVE (Neg); URINE METHADONE SCREEN NEGATIVE (Neg); URINE OPIATE SCREEN NEGATIVE (Neg); URINE PHENCYCLIDINE SCREEN NEGATIVE (Neg)
--- NOTE | 2023-03-30 23:00 | NUR ---
The patient presented to the PA that he has been taking his medications and that he has not been using drugs. He has not been taking his medications and no meds are missing from his rx bottles and his drug screen was positive for amphetamines and THC.
--- NOTE | 2023-03-31 01:17 | NUR ---
The patient appears to be sleeping
--- NOTE | 2023-03-31 03:14 | NUR ---
The patient appears to be sleeping
--- NOTE | 2023-03-31 05:02 | NUR ---
The patient appears to be sleeping
[2023-03-31 06:00] VITALS: BP 111/83; PULSE 63; TEMP 97.7; O2SAT 100
--- NOTE | 2023-03-31 06:30 | NUR ---
Received pt. sleeping in bed, rise and fall of chest noted.
[2023-03-31 07:15] LABS: BILIRUBIN,URINE NEGATIVE (Neg); CLARITY,URINE CLEAR (Clear); COLOR,URINE YELLOW (Yellow); GLUCOSE, URINE NEGATIVE (Neg); KETONES,URINE NEGATIVE (Neg); LEUKOCYTE ESTERASE ,URINE NEGATIVE (Neg); NITRITES, URINE NEGATIVE (Neg); OCCULT BLOOD,URINE NEGATIVE (Neg); PROTEIN,URINE NEGATIVE (Neg); UROBILINOGEN,URINE 0.2 E.U/dL (0.2-1.0)
[2023-03-31 07:28] LABS: UA COLLECTION TYPE CLN CATCH MIDSTREAM
[2023-03-31] MEDS ORDERED: sertraline 50mg tablet PO SCH ×2 (08:00)
[2023-03-31] MEDS ORDERED: sertraline 25mg tablet PO SCH (08:01)
[2023-03-31 08:30] VITALS: RESP 12
--- NOTE | 2023-03-31 08:30 | NUR ---
Pt. continues to sleep at this time, resting on his back, rr are even and unlabored.
[2023-03-31] MEDS: QUEtiapine 25mg tablet PO SCH ×2 (09:20→13:53)
--- NOTE | 2023-03-31 10:32 | NUR ---
Pt. was awoken for medications which he was compliant with and this property underwriter attempted to complete a mental health assessment at bedside. Pt. presents as very fatigued and will not open his eyes, he responds to direct questions only by shaking his head yes or no. Pt. reports ongoing A/V/CASANOVA and paranoid delusional thoughts that others want to hurt him. He denies any current S/I. Pt. returns immediately back to sleep, will continue to monitor closely.
--- NOTE | 2023-03-31 12:33 | NUR ---
Pt. is sleeping at this time, rr are even and unlabored.
--- NOTE | 2023-03-31 14:24 | NUR ---
Pt. sat up to eat lunch and then returned back to sleep.
--- NOTE | 2023-03-31 15:15 | NUR ---
[facility] at bedside evaluating pt. at this time. Pt. is resistant to conversation and is becoming agitated. Security was called, and pt. then lunged at [facility] worker, however he was able to be redirected back to bed. Pt. was verbally de-escalated and is sleeping at this time. Per [facility], pt. will not be placed on a mental health hold and will be escorted out by security at change of shift.
--- NOTE | 2023-03-31 16:23 | NUR ---
Pt. is laying in bed at this time sleeping, rr are even and unlabored.
[2023-03-31] MEDS ORDERED: quetiapine 100mg tablet PO SCH (21:00)
== END 2023-03-31 18:17 | disposition home or self-care (01) ==
LOC: ER 19:10
DX: F25.9 Schizoaffective disorder, unspecified (principal); Z20.822 Contact with and (suspected) exposure to COVID-19; F15.10 Other stimulant abuse, uncomplicated; Z88.6 Allergy status to analgesic agent; Z56.0 Unemployment, unspecified
CPT/HCPCS: 36415; 80053; 80305; 80320; 81003; 85025; 87811; 99285; Q0177

== ENCOUNTER 2023-05-22 07:06 | Emergency (ER) | payer MEDICAID ==
[~2023-05-22] VITALS: Ht 172.7 cm; Wt 81.3 kg
[~2023-05-22 07:06] MED LIST changes: +CLIN300C3 PO; +QUET-1 PO; -QUET100T34 PO; +QUET50TA PO; -QUET50TA24 PO; +SERT-153 PO; -SERT-432 PO; -SERT-433 PO; +SERT25TA PO
[2023-05-22 07:10] VITALS: BP 141/97; PULSE 91; RESP 18; TEMP 97.8; O2SAT 98
== END 2023-05-22 08:06 | disposition left against medical advice (07) ==
LOC: ER 07:07
DX: R30.9 Painful micturition, unspecified (principal); Z53.21 Procedure and treatment not carried out due to patient leaving prior to being seen by health care provider
CPT/HCPCS: 99281

== ENCOUNTER 2023-06-22 18:25 | Emergency (ER) | payer MEDICAID ==
[~2023-06-22] VITALS: Ht 175.3 cm; Wt 72.7 kg
[2023-06-22 18:54] VITALS: BP 155/80; PULSE 115; RESP 14; TEMP 99.2; O2SAT 98
== END 2023-06-22 19:43 ==
LOC: ER 18:26
DX: F19.10 Other psychoactive substance abuse, uncomplicated (principal); R10.9 Unspecified abdominal pain; F20.9 Schizophrenia, unspecified; F15.90 Other stimulant use, unspecified, uncomplicated; Z56.0 Unemployment, unspecified; Z86.19 Personal history of other infectious and parasitic diseases; Z88.6 Allergy status to analgesic agent; Z79.899 Other long term (current) drug therapy
CPT/HCPCS: 74018; 99283; 99284

== ENCOUNTER 2023-07-19 01:04 | Emergency (ER) | payer MEDICAID ==
[~2023-07-19] VITALS: Ht 172.7 cm; Wt 76.0 kg
[2023-07-19 01:09] VITALS: BP 150/79; PULSE 98; RESP 16; TEMP 99; O2SAT 99
[2023-07-19] MEDS ORDERED: ondansetron 4mg rapidly disintigrating tab PO ONE (03:40)
[2023-07-19] MEDS ORDERED: meclizine 12.5mg tablet PO ONE (03:40)
[2023-07-19] MEDS ORDERED: MECL-226 PO (03:42)
== END 2023-07-19 04:02 | disposition home or self-care (01) ==
LOC: ER 01:05
DX: H81.10 Benign paroxysmal vertigo, unspecified ear (principal); F15.90 Other stimulant use, unspecified, uncomplicated; Z88.6 Allergy status to analgesic agent; Z79.1 Long term (current) use of non-steroidal anti-inflammatories (NSAID); Z79.2 Long term (current) use of antibiotics; Z79.899 Other long term (current) drug therapy
CPT/HCPCS: 99283; J8597

== ENCOUNTER 2023-08-11 18:43 | Emergency (ER) | payer MEDICAID ==
[~2023-08-11] VITALS: Ht 172.7 cm; Wt 72.9 kg
[~2023-08-11 18:43] MED LIST changes: +MECL-226 PO
[2023-08-11 18:57] VITALS: BP 141/102; PULSE 110; RESP 20; TEMP 98.4; O2SAT 98
== END 2023-08-11 19:58 | disposition left against medical advice (07) ==
LOC: ER 18:43
DX: Z04.6 Encounter for general psychiatric examination, requested by authority (principal); Z53.21 Procedure and treatment not carried out due to patient leaving prior to being seen by health care provider
CPT/HCPCS: 99281

== ENCOUNTER 2023-09-27 20:49 | Emergency (ER) | payer MEDICAID ==
[~2023-09-27] VITALS: Ht 177.8 cm; Wt 65.0 kg
[2023-09-27 20:56] VITALS: BP 141/95; PULSE 103; RESP 20; TEMP 97.8; O2SAT 99
[2023-09-27 21:54] LABS: BASOPHILS % (AUTO) 0.4 % (0-1); EOSINOPHILS # (AUTO) 0.1 X10'3 (0-0.9); MONOCYTES # (AUTO) 0.7 X10'3 (0-0.9)
[2023-09-27 21:56] LABS: EOSINOPHILS % (AUTO) 1.9 % (0-6); HEMATOCRIT 38.4 % (42.0-52.0); HEMOGLOBIN 13.2 g/dl (14.0-17.9); LYMPHOCYTES # (AUTO) 2.1 X10'3 (1.1-4.8); LYMPHOCYTES % (AUTO) 29.8 % (21-51); MEAN CORPUSCULAR HEMOGLOBIN 29.2 PG (27.0-31.0); MEAN CORPUSCULAR HGB CONC 34.3 g/dL (33.0-36.5); MONOCYTES % (AUTO) 10.7 % (2-12); NEUTROPHILS % (AUTO) 57.2 % (42-75); PLATELET COUNT 205 X10'3 (140-440); RED BLOOD COUNT 4.51 X10'6 (4.70-6.10)
[2023-09-27 22:06] LABS: ALBUMIN 3.3 G/DL (3.4-5.0); ANION GAP 12 (8-16); BLOOD UREA NITROGEN 14 MG/DL (7-18); BUN/CREATININE RATIO 18.9 (10.0-20.0); CALCIUM 8.6 MG/DL (8.5-10.1); CHLORIDE 103 MMOL/L (99-107); CREATININE 0.74 MG/DL (0.60-1.10); GLUCOSE 118 MG/DL (70-104); POTASSIUM 3.5 MMOL/L (3.5-5.1); SODIUM 139 MMOL/L (135-145); TOTAL CARBON DIOXIDE 23.7 MMOL/L (24-32); eCRCL 111 ML/MIN; eGFR > 90 ML/MIN
[2023-09-29] MEDS ORDERED: QUET-1 PO (03:51)
[2023-09-29] MEDS ORDERED: QUET50TA PO (03:51)
== END 2023-09-28 02:45 | disposition left against medical advice (07) ==
LOC: ER 20:50
DX: M79.604 Pain in right leg (principal); F15.90 Other stimulant use, unspecified, uncomplicated; F10.90 Alcohol use, unspecified, uncomplicated; F20.9 Schizophrenia, unspecified; Z56.0 Unemployment, unspecified; Z88.6 Allergy status to analgesic agent; Z79.899 Other long term (current) drug therapy; Z79.2 Long term (current) use of antibiotics
CPT/HCPCS: 80048; 85025; 99283

== ENCOUNTER 2023-09-28 12:18 | Emergency (ER) | payer MEDICAID ==
[~2023-09-28] VITALS: Ht 172.7 cm; Wt 72.9 kg
[2023-09-28 12:23] VITALS: BP 123/81; PULSE 104; TEMP 98; O2SAT 97
[2023-09-28 13:04] VITALS: RESP 18
[2023-09-29] MEDS ORDERED: QUET50TA PO (03:51)
[2023-09-29] MEDS ORDERED: QUET-1 PO (03:51)
== END 2023-09-28 13:56 | disposition left against medical advice (07) ==
LOC: ER 12:20
DX: R53.1 Weakness (principal); Z53.21 Procedure and treatment not carried out due to patient leaving prior to being seen by health care provider
CPT/HCPCS: 99281

== ENCOUNTER 2023-09-29 03:23 | Emergency (ER) | payer MEDICAID ==
[~2023-09-29] VITALS: Ht 172.7 cm; Wt 70.0 kg
[2023-09-29 03:27] VITALS: BP 126/82; PULSE 103; RESP 16; TEMP 98.2; O2SAT 98
[2023-09-29] MEDS ORDERED: QUET-1 PO (03:51)
[2023-09-29] MEDS ORDERED: QUET50TA PO (03:51)
== END 2023-09-29 04:55 | disposition home or self-care (01) ==
LOC: ER 03:23
DX: F20.9 Schizophrenia, unspecified (principal); F15.10 Other stimulant abuse, uncomplicated; Z88.6 Allergy status to analgesic agent; Z79.2 Long term (current) use of antibiotics; Z79.899 Other long term (current) drug therapy
CPT/HCPCS: 99281

== ENCOUNTER 2023-09-29 15:21 | Emergency (ER) | payer MEDICAID ==
[~2023-09-29] VITALS: Ht 172.7 cm; Wt 68.2 kg
[2023-09-29 15:26] VITALS: TEMP 98.2
[2023-09-29 16:49] LABS: BASOPHILS % (AUTO) 0.4 % (0-1); EOSINOPHILS # (AUTO) 0.1 X10'3 (0-0.9); EOSINOPHILS % (AUTO) 1.1 % (0-6); HEMATOCRIT 40.7 % (42.0-52.0); HEMOGLOBIN 13.7 g/dl (14.0-17.9); LYMPHOCYTES # (AUTO) 2.4 X10'3 (1.1-4.8); LYMPHOCYTES % (AUTO) 29.7 % (21-51); MEAN CORPUSCULAR HEMOGLOBIN 28.6 PG (27.0-31.0); MEAN CORPUSCULAR HGB CONC 33.7 g/dL (33.0-36.5); MEAN CORPUSCULAR VOLUME 84.9 FL (78-98); MEAN PLATELET VOLUME 7.2 FL (7.4-10.4); MONOCYTES # (AUTO) 0.7 X10'3 (0-0.9); MONOCYTES % (AUTO) 9.3 % (2-12); NEUTROPHILS # (AUTO) 4.7 X10'3 (1.8-7.7); NEUTROPHILS % (AUTO) 59.5 % (42-75); PLATELET COUNT 255 X10'3 (140-440); RED CELL DISTRIBUTION WIDTH 14.1 % (11.5-14.5); WHITE BLOOD COUNT 7.9 X10'3 (4.5-11.0)
[2023-09-29 16:54] VITALS: BP 146/97; PULSE 105; RESP 16; O2SAT 99
[2023-09-29 16:57] LABS: ALBUMIN 3.8 G/DL (3.4-5.0); ANION GAP 9 (8-16); BLOOD UREA NITROGEN 17 MG/DL (7-18); BUN/CREATININE RATIO 27.9 (10.0-20.0); CALCIUM 8.7 MG/DL (8.5-10.1); CHLORIDE 103 MMOL/L (99-107); CREATININE 0.61 MG/DL (0.60-1.10); ETHANOL < 10 MG/DL (<10); GLUCOSE 122 MG/DL (70-104); POTASSIUM 3.7 MMOL/L (3.5-5.1); SODIUM 138 MMOL/L (135-145); TOTAL CARBON DIOXIDE 25.8 MMOL/L (24-32); eCRCL 141 ML/MIN; eGFR > 90 ML/MIN
[2023-09-29] MEDS ORDERED: dicyclomine 10 MG capsule PO ONE (17:10)
[2023-09-29] MEDS ORDERED: ondansetron 4mg rapidly disintigrating tab PO ONE (17:10)
== END 2023-09-29 17:17 | disposition left against medical advice (07) ==
LOC: ER 15:23
DX: F15.90 Other stimulant use, unspecified, uncomplicated (principal); F20.9 Schizophrenia, unspecified; F10.90 Alcohol use, unspecified, uncomplicated; Z56.0 Unemployment, unspecified; Z88.6 Allergy status to analgesic agent; Z79.899 Other long term (current) drug therapy
CPT/HCPCS: 36415; 80048; 80320; 85025; 99283

== ENCOUNTER 2023-09-29 19:22 | Emergency (ER) | payer MEDICAID ==
[~2023-09-29] VITALS: Ht 172.7 cm; Wt 72.7 kg
[2023-09-29 19:43] VITALS: BP 143/96; PULSE 94; RESP 16; TEMP 98.1; O2SAT 100
[2023-09-29] MEDS ORDERED: OLANZapine 2.5MG tablet PO STA (20:31)
== END 2023-09-29 20:43 | disposition home or self-care (01) ==
LOC: ER 19:22
DX: F15.90 Other stimulant use, unspecified, uncomplicated (principal); F20.9 Schizophrenia, unspecified; Z72.89 Other problems related to lifestyle; Z56.0 Unemployment, unspecified; Z88.6 Allergy status to analgesic agent; Z79.899 Other long term (current) drug therapy; Z79.2 Long term (current) use of antibiotics
CPT/HCPCS: 99281

== ENCOUNTER 2023-11-08 21:35 | Emergency (ER) | payer MEDICAID ==
[2023-11-08 21:37] VITALS: BP 143/110; PULSE 90; RESP 16; TEMP 98.7; O2SAT 98
[2023-11-08 22:13] LABS: BASOPHILS # (AUTO) 0.1 X10'3 (0-0.2); EOSINOPHILS % (AUTO) 0.1 % (0-6); HEMOGLOBIN 14.1 g/dl (14.0-17.9); LYMPHOCYTES # (AUTO) 2.1 X10'3 (1.1-4.8); MEAN CORPUSCULAR HEMOGLOBIN 28.8 PG (27.0-31.0); MEAN CORPUSCULAR HGB CONC 34.3 g/dL (33.0-36.5); MEAN CORPUSCULAR VOLUME 83.8 FL (78-98); MEAN PLATELET VOLUME 7.4 FL (7.4-10.4); MONOCYTES # (AUTO) 0.9 X10'3 (0-0.9); MONOCYTES % (AUTO) 8.8 % (2-12); NEUTROPHILS # (AUTO) 6.9 X10'3 (1.8-7.7); NEUTROPHILS % (AUTO) 69.1 % (42-75); PLATELET COUNT 197 X10'3 (140-440); RED BLOOD COUNT 4.89 X10'6 (4.70-6.10); RED CELL DISTRIBUTION WIDTH 14.7 % (11.5-14.5)
[2023-11-08 22:23] LABS: ALANINE AMINOTRANSFERASE 451 U/L (12-78); ALBUMIN/GLOBULIN RATIO 0.9 (1.1-1.5); ALKALINE PHOSPHATASE 135 IU/L (46-116); ANION GAP 14 (8-16); ASPARTATE AMINO TRANSFERASE 525 U/L (10-37); BILIRUBIN,TOTAL 1.9 MG/DL (0.1-1.0); BLOOD UREA NITROGEN 29 MG/DL (7-18); BUN/CREATININE RATIO 30.5 (10.0-20.0); CALCIUM 9.4 MG/DL (8.5-10.1); CHLORIDE 100 MMOL/L (99-107); CREATININE 0.95 MG/DL (0.60-1.10); GLUCOSE 107 MG/DL (70-104); POTASSIUM 4.1 MMOL/L (3.5-5.1); SODIUM 137 MMOL/L (135-145); TOTAL CARBON DIOXIDE 23.2 MMOL/L (24-32); TOTAL PROTEIN 8.4 G/DL (6.4-8.2); eGFR 84 ML/MIN
[2023-11-08 22:32] LABS: ETHANOL < 10 MG/DL (<10); THYROID STIMULATING HORMONE 0.68 ulU/ml (0.34-4.50)
[2023-11-08 22:42] LABS: ACETAMINOPHEN < 2.0 UG/ML (10-30)
[2023-11-08] MEDS ORDERED: QUET50TA PO (23:33)
[2023-11-08 23:44] LABS: ALANINE AMINOTRANSFERASE 458 U/L (12-78); ALBUMIN 3.9 G/DL (3.4-5.0); ALBUMIN/GLOBULIN RATIO 0.9 (1.1-1.5); ALKALINE PHOSPHATASE 122 IU/L (46-116); ASPARTATE AMINO TRANSFERASE 535 U/L (10-37); BILIRUBIN,TOTAL 1.6 MG/DL (0.1-1.0); TOTAL PROTEIN 8.3 G/DL (6.4-8.2)
[2023-11-08 23:47] LABS: BILIRUBIN,DIRECT 0.6 MG/DL (0-0.3)
[2023-11-08] MEDS: chlordiazePOXIDE 25mg capsule PO ONE (23:47)
== END 2023-11-08 23:51 | disposition home or self-care (01) ==
LOC: ER 21:36
DX: R44.0 Auditory hallucinations (principal); R44.1 Visual hallucinations; F10.90 Alcohol use, unspecified, uncomplicated; F15.90 Other stimulant use, unspecified, uncomplicated; Z56.0 Unemployment, unspecified; Z88.6 Allergy status to analgesic agent; Z76.0 Encounter for issue of repeat prescription; Z79.2 Long term (current) use of antibiotics; Z79.899 Other long term (current) drug therapy
CPT/HCPCS: 36415; 80053; 80076; 80320; 80329; 84443; 85025; 99283

== ENCOUNTER 2023-11-16 00:25 | Emergency (ER) | payer MEDICAID ==
[~2023-11-16] VITALS: Ht 172.7 cm; Wt 63.6 kg
[2023-11-16 00:52] VITALS: TEMP 97.6
[2023-11-16] MEDS: olanzapine 10mg tablet PO STA (03:06)
[2023-11-16 04:57] VITALS: BP 130/81; PULSE 98; RESP 16; O2SAT 98
== END 2023-11-16 05:08 | disposition home or self-care (01) ==
LOC: ER 00:26
DX: F22 Delusional disorders (principal); F15.10 Other stimulant abuse, uncomplicated; F20.9 Schizophrenia, unspecified; F17.200 Nicotine dependence, unspecified, uncomplicated; F10.90 Alcohol use, unspecified, uncomplicated; Z56.0 Unemployment, unspecified; Z88.6 Allergy status to analgesic agent; Z79.899 Other long term (current) drug therapy; Z79.2 Long term (current) use of antibiotics
CPT/HCPCS: 99283